=== PATIENT | female | born 1955 ===

== ENCOUNTER 2018-06-08 14:42 | Outpatient (CLI) | payer OTHER | END 2018-06-08 14:51 | disposition home or self-care (01) | LOC: LAB 14:42 | DX: E78.2 Mixed hyperlipidemia (principal); E23.3 Hypothalamic dysfunction, not elsewhere classified; E88.89 Other specified metabolic disorders; E03.8 Other specified hypothyroidism; I11.9 Hypertensive heart disease without heart failure; E66.01 Morbid (severe) obesity due to excess calories; I27.0 Primary pulmonary hypertension; G47.33 Obstructive sleep apnea (adult) (pediatric); J44.9 Chronic obstructive pulmonary disease, unspecified; F15.20 Other stimulant dependence, uncomplicated; D69.6 Thrombocytopenia, unspecified ==